=== PATIENT | female | born 1960 | race Hispanic/Latino ===

== ENCOUNTER 2017-04-25 11:47 | Emergency (ER) | payer SELFPAY ==
[2017-04-25 12:07] VITALS: BP 137/76; TEMP 97.7; O2SAT 98
[2017-04-25] MEDS ORDERED: LIDOCAINE 1% 10 ML VIAL INJ ONE (12:11)
[2017-04-25] MEDS ORDERED: POVIDONE IODINE 10 % 15 ML UD TOP ONE (12:11)
[2017-04-25] MEDS ORDERED: CHLORHEXIDINE GLUCONATE 4 % 15 ML UD TOP ONE ×2 (12:11→12:39)
[2017-04-25] MEDS ORDERED: NEOMYCIN-BACITRACIN-POLYMYXIN 0.9 GM UD TOP ONE (13:00)
--- NOTE | 2017-04-25 13:08 | ED.PDOC ---
History of Present Illness - General Chief Complaint: Laceration Stated Complaint: Laceration to L wrist Time Seen by Provider: 04/25/17 12:59 Source: patient, family Exam Limitations: language barrier Additional Information: PTS DAUGHTER PROVIDES TRANSLATION - History of Present Illness Initial Comments: PT PRESENTS TO THE ED AFTER ACCIDENTALLY CUTTING HER LEFT WRIST WITH A KNIFE WHILE COOKING. Timing/Duration: just prior to arrival Severity: mild Location: extremities - LEFT LATERAL WRIST Improving Factors: nothing Worsening Factors: nothing Associated Symptoms: denies symptoms Allergies/Adverse Reactions: Allergies NO KNOWN ALLERGY Allergy (Verified 04/25/17 12:07) Home Medications: Ambulatory Orders Bp Med 04/25/17 Diabetic Meds 04/25/17 Review of Systems - Review of Systems Constitutional: Denies: chills, fever EENTM: Denies: blurred vision, double vision Respiratory: Denies: cough, short of breath Cardiology: Denies: chest pain, palpitations Past Medical History (General) - Patient Medical History Hx Stroke: No Hx Congestive Heart Failure: No Hx Hypertension: Yes Hx Gastroesophageal Reflux: Yes Hx Renal Disease: Yes - Renal function monitored frequently - Vaccination History Hx Influenza Vaccination: No Hx Pneumococcal Vaccination: No - Social History Hx Tobacco Use: No Hx Alcohol Use: No Family Medical History - Family History Mother Family History: No Known Living Status: Physical Exam - Physical Exam General Appearance: Alert, Comfortable, No apparent distress, Well Developed, Well Groomed, Well Hydrated Eyes, Ears, Nose, Throat Exam: normal ENT inspection Neck: normal inspection Respiratory: no respiratory distress Extremity: normal range of motion, non-tender Neurologic: alert, normal mood/affect Skin Exam: warm/dry, normal color Skin Problem Location: upper extremities Skin Character: linear - LACERATION TO THE LATERAL LEFT WRIST, NO ACTIVE BLEEDING, NO EXPOSED MUSCLE OR TENDON, FLEXOR/EXTENSOR TENDON FUNCTION INTACT Procedures - Laceration/Wound Repair Left Wrist Wound Length (cm): 3 Wound's Depth, Shape: superficial, linear Wound Explored: no foreign body removed Irrigated w/ Saline (cc's): 250 Betadine Prep?: Yes Anesthesia: 1% Lidocaine Volume Anesthetic (cc's): 5 Wound Repaired With: sutures Suture Size/Type: 4:0, nylon Number of Sutures: 7 Layer Closure?: No Sterile Dressing Applied?: Yes Progress: PT TOLERATED PROCEDURE WELL. Departure - Departure Clinical Impression: Laceration Time of Disposition: 13:11 Disposition: Discharge to Home or Self Care Condition: Good Departure Forms: ED Discharge - Pt. Copy, Patient Portal Self Enrollment Instructions: DI for Laceration Repair Home Medications: Ambulatory Orders Bp Med 04/25/17 Diabetic Meds 04/25/17 Additional Instructions: RETURN TO ED IN 7-10 DAYS FOR SUTURE REMOVAL, RETURN SOONER FOR ANY SIGNS OF INFECTION
[2017-04-25] MEDS ORDERED: TETANUS,DIPHTHERIA,PERTUSSIS 1 EA SYG IM ONE (13:13)
== END 2017-04-25 13:35 | disposition home or self-care (01) ==
LOC: ER 11:47
DX: S61.512A Laceration without foreign body of left wrist, initial encounter (principal); I10 Essential (primary) hypertension; K21.9 Gastro-esophageal reflux disease without esophagitis; N28.9 Disorder of kidney and ureter, unspecified; Z23 Encounter for immunization; W26.0XXA Contact with knife, initial encounter; Y93.G3 Activity, cooking and baking; Y92.9 Unspecified place or not applicable